=== PATIENT | female | born 1950 | race Caucasian/White ===

== ENCOUNTER 2020-02-02 10:52 | Observation (INO) | payer OTHER ==
[~2020-02-02] VITALS: Ht 152.4 cm; Wt 39.0 kg
[~2020-02-02 10:52] MED LIST: ALBUTEROL SULFATE INH; ALENDRONATE SOD35 MG PO; ASPIRIN325 MG PO; ATIVAN1 MG PO; CLONAZEPAM1 MG PO; DICYCLOMINE HCL20 MG PO; HYDROXYCHLOROQ200 MG PO; NEXIUM40 MG PO; POTASSIUM CHLO20 ME1 PO; PREDNISONE5 MG PO; PREMPRO 0.45-11 EACH PO; PROAIR HFA INH8.5 GM INH; QUESTRAN PACKET4 GM PO; SINGULAIR10 MG PO; SPIRIVA18 MCG INH; WELLBUTRIN SR150 MG PO
--- OUTSIDE RECORDS SUMMARY | 2020-02-02 10:57 | XMS REPORT | Continuity of Care Document ---
Author Author Sarah Goddard Information URSULA Chris [employer] Address Unknown Phone Unavailable Care Team Providers Care Architecture Manager Name Role Phone [employer] Unavailable Un available Problems Problem Status Onset Date Classification Date Reported Comments Source long term (current) use of systemic steroids Active Problem 12/18/2019 Chau [place] [facility] ([facility] drug therapy Active Problem 06/2020 Chau York Osteoporosis Active Problem 12/18/2019 Chau York Declined smoking cessation Act lianne Problem 06/2020 Chau York Primary osteoarthritis involving multiple joints Active Problem 12/18/2019 Chau York Rheumatoid arthritis with unknown rheuma toid factor status Active Prob levar 10/11/2017 Chau York Rheumatoid arthritis without rheumatoid factor, multiple sites Active Prob levar 12/18/2019 Chau York Pain in left knee Active Problem 12/18/2019 Chau York Other chronic pain Active Problem 12/18/2019 Chau York Vitamin D deficiency, unspecified Active Problem 06/2020 Chau Beltraner Medications Medication Details Route Status Patient Instructions Ordering Provider Order Date Source PredniSONE 1 tablet Orally Active 5 MG Orally twice a day [place] 07/13/2019 Chau York Sulfasalazine 2 tablets Orally Active 500 MG Orally bid York 06/03/2019 Chau Beltraner PredniSONE 1 tablet Orally Active 5 MG Orally twice a day [facility] 04/07/2019 Chau York Sulfasalazine 2 tablets Orally Active 500 MG Orally bid [place] 02/26/2019 Chau York Alendronate Sodium 1 tablet Orally Active 70 MG Orally Once a week [place] 01/07/2019 Chau York Alendronate Sodium 1 tablet Orally Active 70 MG Orally Once a week [place] 09/30/2018 Chau [place] Sulfasalazine 2 tablets Orally Active 500 MG Orally bid York 08/14/2018 Chau York PredniSONE 1 tablet Orally Active 5 MG Orally twice a day [place] 03/15/2018 Chau York Leflunomide 2 tablets Orally Active 10 MG Orally Once a day [place] 03/15/2018 Chau York Sulfasalazine 2 tablets Orally Active 500 MG Orally bid [place] 01/21/2018 Chau York Glucosamine 1 capsule with a m eal Orally Active 500 MG Orally Once a day [place] Chau York PredniSONE 1 tablet Orally Active 5 MG Orally twice a day [place] John Beltraner Alendronate Sodium 1 tablet Orally Active 70 MG Orally Once a week [place] Chau York Nexium 1 capsule Orally Active 20 MG Orally Once a day [place] Bel[facility]an[facility] Leflunomide 2 tablets Orally Active 10 MG Orally Once a day [place] Chau York Caltrate Gummy Bites as direct ed Orally Active 250-400 MG-UNIT Orally Once a day [place] Chau York Alendronate Sodium 1 tablet Orally Active 70 MG Orally Once a week [place] Chau York Entocort EC one Orally Active 3 MG Orally tid [place] John Beltraner Allergies, Adverse Reactions, Alerts Substance Category Reaction Severity Reaction type Status Date Reported Comments Source N.K.D.A. Adverse Reaction Info Not Available Adverse Reaction Active 12/31/2017 Chau York leflunomide Adverse Reaction hair loss Adverse Reaction Active 12/19/2018 Chau York Immunizations No Data Provided for This Section Results No Data Provided for This Section Pathology Reports No Data Provided for This Section Diagnostic Reports No Data Provided for This Section Consultation Notes No Data Provided for This Section Discharge Summaries No Data Provided for This Section History and Physicals No Data Provided for This Section Vital Signs Vital Sign Value Date Comments Source Weight 86.1 12/19/2018 Chau York Height 60 0 12/19/2018 Chau Beltraner Temperature Oral (F) 98.8 F 12/19/2018 Chau York Heart Rate 76 12/19/2018 Chau [place] Diastolic (mm Hg) 80 12/19/2018 Chau York Systolic (mm Hg) 166 12/19/2018 Chau York Weight 84.7 05/01/2018 Chau Beltraner Height 60 0 05/01/2018 Chau Beltraner Temperature Oral (F) 98.6 F 05/01/2018 Chau Beltraner Heart Rate 76 05/01/2018 Chau [place] Diastolic (mm Hg) 68 05/01/2018 Chau [place] Systolic (mm Hg) 124 05/01/2018 Chau York Weight 86.8 01/21/2018 Chau York Height 60 0 01/21/2018 Chau [place] Temperature Oral (F) 98.7 F 01/21/2018 Chau York Heart Rate 78 01/21/2018 Chau [place] Diastolic (mm Hg) 80 01/21/2018 Chau [place] Systolic (mm Hg) 130 01/21/2018 Chau [place] Weight 87.5 12/31/2017 Chau York Height 59 0 12/31/2017 Chau [place] Temperature Oral (F) 98.8 F 12/31/2017 Chau [place] Heart Rate 80 12/31/2017 Chau [place] Diastolic (mm Hg) 82 12/31/2017 Chau [place] Systolic (mm Hg) 152 12/31/2017 Chau [place] Weight 91.7 09/16/2017 Chau York Height 60 0 09/16/2017 Chau [place] Temperature Oral (F) 98.9 F 09/16/2017 Chau York Heart Rate 96 09/16/2017 Chau [place] Diastolic (mm Hg) 80 09/16/2017 Chau [place] Systolic (mm Hg) 112 09/16/2017 [facility] York Encounters No Data Provided for This Section Procedures No Data Provided for This Section Assessment and Plan No Data Provided for This Section Plan of Care No Data Provided for This Section Social History No Data Provided for This Section Family History No Data Provided for This Section Advance Directives No Data Provided for This Section Functional Status No Data Provided for This Section
--- OUTSIDE RECORDS SUMMARY | 2020-02-02 10:57 | XMS REPORT ---
Author Author URSULA York Organization [employer] Address Unknown Phone Unavailable Care Team Providers Care Materials Engineering Technician Name Role Phone Mike York CP Unavailable Allergies No Known Allergies Problems Problem Type Condition Code Onset Dates Condition Statu s Problem ferry terminal agent (current) use of systemic steroids Z79.52 Active Problem Other senior living (current) drug therapy Z79.899 Active Problem Primary osteoarthritis involving multiple joints M15.0 Active Problem Osteoporosis M81.0 Active Problem Vitamin D deficiency, unspecified E55.9 Active Problem Other chronic pain G89.29 Active Problem Rheumatoid arthritis without rheumatoid factor, multip le sites M06.09 Active Problem Declined smoking cessation Z72.0 A ctive Problem Pain in left knee M25.562 Active Medications Medication Code System Code Instructions Start Date End Date Status Dosage Sulfasalazine [facility] 45239522055 500 MG Orally bid Jun 03, 2019 Active 2 tablets Results No Known Results Summary Purpose [employer] Submission
--- OUTSIDE RECORDS SUMMARY | 2020-02-02 10:58 | XMS REPORT ---
Author Author URSULA York [facility] [employer] Address Unknown Phone Unavailable Care Team Providers Care Accounting Systems Manager Name Role Phone Mike York CP Unavailable Allergies No Known Allergies Problems Problem Type Condition Code Onset Dates Condition Statu s Problem terminal clerk (current) use of systemic steroids Z79.52 Active Problem Other detention (current) drug therapy Z79.899 Active Problem Primary [...] Start Date End Date Status Dosage Sulfasalazine [facility] 66038189194 500 MG Orally bid Aug 14, 2018 Active 2 tablets Results No Known Results Summary Purpose [employer] Submission
--- OUTSIDE RECORDS SUMMARY | 2020-02-02 10:58 | XMS REPORT ---
Author Author URSULA York Organization [employer] Address Unknown Phone Unavailable Care Team Providers Care Manager Sign Name Role Phone Mike York CP Unavailable Allergies No Known Allergies Problems Problem Type Condition Code Onset Dates Condition Statu s Problem intermodal customer service (current) use of systemic steroids Z79.52 Active Problem Other jail (current) drug therapy Z79.899 Active Problem Primary osteoarthritis involving multiple joints M15.0 Active Problem Osteoporosis M81.0 Active Problem Vitamin D deficiency, unspecified E55.9 Active Problem Other chronic pain G89.29 Active Problem Rheumatoid arthritis without rheumatoid factor, multip le sites M06.09 Active Problem Declined smoking cessation Z72.0 A ctive Problem Pain in left knee M25.562 Active Medications No Known Medications Results No Known Results Summary Purpose [employer] Submission
--- OUTSIDE RECORDS SUMMARY | 2020-02-02 10:58 | XMS REPORT ---
Author Author URSULA York Organization [employer] Address Unknown Phone Unavailable Care Team Providers Care Steam Tunnel Feeder Name Role Phone Mike York CP Unavailable Allergies No Known Allergies Problems Problem Type Condition Code Onset Dates Condition Statu s Problem rn long term care (current) use of systemic steroids Z79.52 Active Problem Other [facility] (current) drug therapy Z79.899 Active Problem Primary [...] Start Date End Date Status Dosage Sulfasalazine [facility] 68229669539 500 MG Orally bid February 26, 2019 Active 2 tablets Results No Known Results Summary Purpose [employer] Submission
--- OUTSIDE RECORDS SUMMARY | 2020-02-02 10:58 | XMS REPORT ---
Author Author URSULA York [facility] e[employer] Address Unknown Phone Unavailable Care Team Providers Care Pantry Goods Worker Name Role Phone Mike York CP Unavailable Allergies, Adverse Reactions, Alerts Substance Reaction Event Type leflunomide hair loss Non Drug Allergy Problems Problem Type Condition Code Onset Dates Condition Statu s Problem senior care (current) use of systemic steroids Z79.52 Active Problem Other termite technician (current) drug therapy Z79.899 Active Problem Primary osteoarthritis involving multiple joints M15.0 Active Problem Osteoporosis M81.0 Active Problem Vitamin D deficiency, unspecified E55.9 Active Problem Other chronic pain G89.29 Active Problem Rheumatoid arthritis without rheumatoid factor, multip le sites M06.09 Active Problem Declined smoking cessation Z72.0 A ctive Problem Pain in left knee M25.562 Active Assessment Declined smoking cessation Z72.0 A ctive Assessment Primary osteoarthritis involving multiple joints M15.0 Active Assessment Other termite technician (current) drug therapy Z79.899 Active Assessment Osteoporosis M81.0 Active Assessment Rheumatoid arthritis without rheumatoid factor, multiple sites M06.09 Active Medications Medication Code System Code Instructions Start Date End Date Status Dosage Glucosamine ND 86497285040 500 MG Orally Once a day Active 1 capsule with a meal PredniSONE ND 74181964559 5 MG Orally twice a day A ctive 1 tablet Nexium ND 04616912838 20 MG Orally Once a day Acti ve 1 capsule Sulfasalazine ND 83014446925 500 MG Orally bid Aug 14, 2018 Active 2 tablets Alendronate Sodium ND 17903650941 70 MG Orally Once a week Sep 30, 2018 Active 1 [place] [address]-76 3 MG Orally tid Active one Caltrate Gummy Bites ND 97209079109 250-400 MG-UNIT Orally Once a day Active as directed Vital Signs Date/Time: December 19, 2018 BMI 16.81 Index Weight 86.1 lbs Height 60 in Temperature 98.8 F Cardiac Monitoring Heart Rate 76 /min Blood Pressure Diastolic 80 mm Hg Blood Pressure Systolic 166 mm Hg Results No Known Results Summary Purpose [employer]Works Submission
--- OUTSIDE RECORDS SUMMARY | 2020-02-02 10:58 | XMS REPORT ---
Author URSULA Cherry [facility] e[employer] Address Unknown Phone Unavailable Care Team Providers Care Concrete Paver Name Role Phone Mike York CP Unavailable Allergies, Adverse Reactions, Alerts Substance Reaction Event Type leflunomide hair loss Non Drug Allergy Problems Problem Type Condition Code Onset Dates Condition Statu s Assessment Rheumatoid arthritis without rheumatoid factor, multiple sites M06.09 Active Problem continuous churn buttermaker (current) use of systemic steroids Z79.52 Active Problem Other manager terminal (current) drug therapy Z79.899 Active Problem Primary osteoarthritis involving multiple joints M15.0 Active Problem Osteoporosis M81.0 Active Problem Vitamin D deficiency, unspecified E55.9 Active Problem Other chronic pain G89.29 Active Problem Rheumatoid arthritis without rheumatoid factor, multip le sites M06.09 Active Problem Declined smoking cessation Z72.0 A ctive Problem Pain in left knee M25.562 Active Assessment continuous churn buttermaker (current) use of systemic steroids Z79.52 Active Assessment Osteoporosis M81.0 Active Assessment Primary osteoarthritis involving multiple joints M15.0 Active Medications Medication Code System Code Instructions Start Date End Date Status Dosage PredniSONE ND 66563832693 5 MG Orally twice a day A ctive 1 tablet Glucosamine ND 22843694989 500 MG Orally Once a day Active 1 capsule with a meal Nexium ND 08005197280 20 MG Orally Once a day Acti ve 1 capsule Caltrate Gummy Bites ND 76658599615 250-400 MG-UNIT Orally Once a day Active as directed Sulfasalazine ND 40552251435 500 MG Orally bid January 21, 2018 Jul 20, 2018 Active 2 tablets Alendronate Sodium ND 69148840638 70 MG Orally Once a week Active 1 tablet Vital Signs Date/Time: January 21, 2018 BMI 16.95 Index Weight 86.8 lbs Height 60 in Temperature 98.7 F Cardiac Monitoring Heart Rate 78 /min Blood Pressure Diastolic 80 mm Hg Blood Pressure Systolic 130 mm Hg Results No Known Results Summary Purpose eClinicalWorks Submission
--- OUTSIDE RECORDS SUMMARY | 2020-02-02 10:58 | XMS REPORT ---
Author Author URSULA York [facility] eClinicalWorks Address Unknown Phone Unavailable Care Team Providers Care Donor Specialist Name Role Phone Mike York CP Unavailable Allergies No Known Allergies Problems Problem Type Condition Code Onset Dates Condition Statu s Problem exterminator (current) use of systemic steroids Z79.52 Active Problem Other group home (current) drug therapy Z79.899 Active Problem Primary [...] Instructions Start Date End Date Status Dosage Alendronate Sodium [facility] 81209620406 70 MG Orally Once a week Sep 30, 2018 Active 1 tablet Results No Known Results Summary Purpose eClinicalWorks Submission
--- OUTSIDE RECORDS SUMMARY | 2020-02-02 10:58 | XMS REPORT ---
Author URSULA Cherry [facility] eClinicalWorks Address Unknown Phone Unavailable Care Team Providers Care Spiritual Advisor Name Role Phone Mike York CP Unavailable Allergies, Adverse Reactions, Alerts Substance Reaction Event Type leflunomide hair loss Non Drug Allergy Problems Problem Type Condition Code Onset Dates Condition Statu s Assessment Rheumatoid arthritis without rheumatoid factor, multiple sites M06.09 Active Problem supervisor intermediates (current) use of systemic steroids Z79.52 Active Problem Other remote computer terminal operator (current) drug therapy Z79.899 Active Problem Primary osteoarthritis involving multiple joints M15.0 Active Problem Osteoporosis M81.0 Active Problem Vitamin D deficiency, unspecified E55.9 Active Problem Other chronic pain G89.29 Active Problem Rheumatoid arthritis without rheumatoid factor, multip le sites M06.09 Active Problem Declined smoking cessation Z72.0 A ctive Problem Pain in left knee M25.562 Active Assessment Other remote computer terminal operator (current) drug therapy Z79.899 Active Assessment Osteoporosis M81.0 Active Assessment Primary osteoarthritis involving multiple joints M15.0 Active Medications Medication Code System Code Instructions Start Date End Date Status Dosage Alendronate Sodium ND 62658816156 70 MG Orally Once a week Active 1 tablet PredniSONE ND 47528310758 5 MG Orally twice a day A ctive 1 tablet Caltrate Gummy Bites ND 02409610747 250-400 MG-UNIT Orally Once a day [place] [address]-00 3 MG Orally tid Active one Glucosamine ND 21135495648 500 MG Orally Once a day Active 1 capsule with a meal Sulfasalazine ND 76120062243 500 MG Orally bid January 21, 2018 Active 2 tablets Nexium ND 41030032152 20 MG Orally Once a day Acti ve 1 capsule Vital Signs Date/Time: May 01, 2018 BMI 16.54 Index Weight 84.7 lbs Height 60 in Temperature 98.6 F Cardiac Monitoring Heart Rate 76 /min Blood Pressure Diastolic 68 mm Hg Blood Pressure Systolic 124 mm Hg Results Name Result Date Reference Range Unit Abnormali ty Flag 1055 SEDIMENTATION RATE ----SEDIMENTATION RATE 5 [id number] 0-20 MM/HOUR 1000 CBC W/AUTO DIFF ----PLATELET COUNT 277 [id number] 130-400 K/UL ----MCV 104.1 16359506 80.0-100.0 fL H ----HEMATOCRIT 35.4 93804717 34.0-45.0 % ----BASOPHILS 1.5 06135095 0.0-2.0 % ----MCHC 35.0 14259108 32.0-35.5 G/DL ----EOSINOPHILS 1.6 59702320 0.0-7.0 % ----MCH 36.5 46853037 27.0-34.0 PG H ----MONOCYTES 15.8 93162497 4.0-13.0 % H ----WBC 6.2 51950382 4.0-11.0 K/UL ----HEMOGLOBIN 12.4 77062072 11.5-15.5 G/DL ----RBC 3.40 97307560 3.80-5.10 M/UL L ----LYMPHOCYTES 27.5 41402615 19.0-48.0 % ----RDW 11.1 36575972 11.0-15.0 % ----NEUTROPHILS 53.6 96067980 40.0-74.0 % 9179 COMPREHENSIVE METABOLIC PANEL ----CALC A/G RATIO 1.5 84677267 1.0-2.6 RATIO ----CALC GLOBULIN 2.5 57952264 1.9-3.7 G/DL ----ALKALINE PHOSPHATASE 113 39410031 40-142 U/L ----BILIRUBIN, TOTAL 0.3 17587075 <=1.2 MG/DL ----CHLORIDE 96 22414979 95-107 MEQ/L ----ALT 9 93282741 5-40 U/L ----POTASSIUM 4.2 35058709 3.5-5.4 MEQ/L ----AST 22 20868042 9-40 U/L ----SODIUM 138 69705567 133-146 MEQ/L ----CALC BUN/CREAT 12 88860210 6-28 RATIO ---- eGFR NON- AMER. 94 20180501 >60 ML/MIN/1 .73 ----CALCIUM 9.3 59814176 8.5-10.5 MG/DL ----CARBON DIOXIDE 30 20180501 19-31 MEQ/L ----ALBUMIN 3.7 20180501 3.5-5.2 G/DL ----PROTEIN, TOTAL 6.2 20180501 6.1-8.3 G/DL ----GLUCOSE 88 20180501 70-99 MG/DL ----BUN 7 82989659 8-23 MG/DL L ----CREATININE 0.59 35933076 0.60-1.30 MG/DL L ---- eGFR AMER. 109 20180501 >60 ML/MIN/1.73 5083 HIGH SENSITIVITY CRP ----HIGH SENSITIVITY CRP 1.5 20180501 SEE BELOW MG/L Summary Purpose eClinicalWorks Submission
--- OUTSIDE RECORDS SUMMARY | 2020-02-02 10:58 | XMS REPORT ---
Author Author URSULA Gilliam Organization eClinicalWorks Address Unknown Phone Unavailable Care Team Providers Care National Van Owner Operator Name Role Phone Pam Gilliam CP Unavailable Allergies No Known Allergies Problems Problem Type Condition Code Onset Dates Condition Statu s Problem assisted (current) use of systemic steroids Z79.52 Active [...]
--- OUTSIDE RECORDS SUMMARY | 2020-02-02 10:58 | XMS REPORT ---
Author Author URSULA York Organization [employer] Address Unknown Phone Unavailable Care Team Providers Care Assistant Director Of Public Works Name Role Phone Mike York CP Unavailable Allergies No Known Allergies Problems Problem Type Condition Code Onset Dates Condition Statu s Problem supervisor sample (current) use of systemic steroids Z79.52 Active Problem Other prison (current) drug therapy Z79.899 Active Problem Primary [...] Date End Date Status Dosage Alendronate Sodium [facility]NOTE 2] 51832796788 70 MG Orally Once a week January 07, 2019 Active 1 tablet Results No Known Results Summary Purpose eClinicalWorks Submission
--- OUTSIDE RECORDS SUMMARY | 2020-02-02 10:58 | XMS REPORT ---
Author Author URSULA York Organization [employer]Works Address Unknown Phone Unavailable Care Team Providers Care Manufacturing Engineering Technologist Name Role Phone Mike York CP Unavailable Allergies No Known Allergies Problems Problem Type Condition Code Onset Dates Condition Statu s Problem intermediate designer (current) use of systemic steroids Z79.52 Active Problem Other senior care (current) drug therapy Z79.899 Active Problem Primary [...]
--- OUTSIDE RECORDS SUMMARY | 2020-02-02 10:58 | XMS REPORT ---
Author Author URSULA York Organization [employer]Works Address Unknown Phone Unavailable Care Team Providers Care House Superintendent Name Role Phone Mike York CP Unavailable Allergies No Known Allergies Problems Problem Type Condition Code Onset Dates Condition Statu s Problem intermediate project manager (current) use of systemic steroids Z79.52 Active [...]
--- OUTSIDE RECORDS SUMMARY | 2020-02-02 10:58 | XMS REPORT ---
Author URSULA Cherry [facility] eClinicalWorks Address Unknown Phone Unavailable Care Team Providers Care Lead Care Manager Name Role Phone Mike York CP Unavailable Allergies, Adverse Reactions, Alerts Substance Reaction Event Type N.K.D.A. Info Not Available Non Drug Allergy Problems Problem Type Condition Code Onset Dates Condition Statu s Assessment Rheumatoid arthritis without rheumatoid factor, multiple sites M06.09 Active Problem lobsterman (current) use of systemic steroids Z79.52 Active [...] Pain in left knee M25.562 Active Assessment Vitamin D deficiency, unspecified E55.9 Active Assessment Other termite exterminator (current) drug therapy Z79.899 Active Assessment Primary osteoarthritis involving multiple joints M15.0 Active Assessment Osteoporosis M81.0 Active Medications Medication Code System Code Instructions Start Date End Date Status Dosage Glucosamine ND 88262694180 500 MG Orally Once a day Active 1 capsule with a meal PredniSONE ND 39062218895 5 MG Orally twice a day A ctive 1 tablet Alendronate Sodium ND 56520126499 70 MG Orally Once a week Active 1 tablet Nexium ND 79306872294 20 MG Orally Once a day Acti ve 1 capsule Leflunomide ND 40978519455 10 MG Orally Once a day Active 2 tablets Caltrate Gummy Bites ND 72708217075 250-400 MG-UNIT Orally Once a day Active as directed Vital Signs Date/Time: December 31, 2017 BMI 17.67 Index Weight 87.5 lbs Height 59 in Temperature 98.8 F Cardiac Monitoring Heart Rate 80 /min Blood Pressure Diastolic 82 mm Hg Blood Pressure Systolic 152 mm Hg Results No Known Results Summary Purpose eClinicalWorks Submission
--- OUTSIDE RECORDS SUMMARY | 2020-02-02 10:58 | XMS REPORT ---
Author Author URSULA York Organization [employer]ClinicalWorks Address Unknown Phone Unavailable Care Team Providers Care Systems Lead Name Role Phone Mike York CP Unavailable Allergies No Known Allergies Problems Problem Type Condition Code Onset Dates Condition Statu s Problem conversion man (current) use of systemic steroids Z79.52 Active Problem Other snf (current) drug therapy Z79.899 Active Problem Primary [...]
--- OUTSIDE RECORDS SUMMARY | 2020-02-02 10:58 | XMS REPORT ---
Author Author URSULA York Organization eClinicalWorks Address Unknown Phone Unavailable Care Team Providers Care Channeling Machine Operator Name Role Phone Mike York CP Unavailable Allergies No Known Allergies Problems Problem Type Condition Code Onset Dates Condition Statu s Problem ad terminal makeup operator (current) use of systemic steroids Z79.52 Active Problem Other nursing home (current) drug therapy Z79.899 Active Problem [...] Start Date End Date Status Dosage PredniSONE [facility] 39235646582 5 MG Orally twice a day Jul 13, 2019 Active 1 tablet Results No Known Results Summary Purpose eClinicalWorks Submission
--- OUTSIDE RECORDS SUMMARY | 2020-02-02 10:58 | XMS REPORT ---
Author Author URSULA Gilliam Organization eClinicalWorks Address Unknown Phone Unavailable Care Team Providers Care Surgery Tech Name Role Phone Pam Gilliam CP Unavailable Allergies No Known Allergies Problems Problem Type Condition Code Onset Dates Condition Statu s Problem custodial (current) use of systemic steroids Z79.52 Active Problem Other halfway (current) drug therapy Z79.899 Active Problem Primary [...] Start Date End Date Status Dosage PredniSONE [facility] 40738935617 5 MG Orally twice a day April 07, 2019 Active 1 tablet Results No Known Results Summary Purpose eClinicalWorks Submission
--- OUTSIDE RECORDS SUMMARY | 2020-02-02 10:58 | XMS REPORT ---
Author Author [facility] Organization [facility] Address 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 senior care (current) use of systemic steroids Active Problem 12/18/2019 Chau York Problem Active 2019-12-18 02:59:05 Chau York Other penitentiary (current) drug therapy Other salvage determiner (current) drug therapy Active Problem 12/18/2019 Chau York Problem Ac tive 2019-12-18 02:59:05 Chau piña Osteoporosis Oste oporosis Active Problem 12/18/2019 Chau York Problem Active 2019-12-18 02:59:05 Chau York Declined smoking cessation Dec lined smoking cessation Active Problem 12/18/2019 Chau York Problem Active 2019-12-18 02:59:05 Chau York 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 Active Problem 12/18/2019 Chau York Problem Active 2019-12-18 02:59:05 Chau York Rheumatoid arthritis with unknown rheumatoid factor st atus Rheumatoid arthritis with unknown rheumatoid factor status Active Problem 10/11/2017 Chau York Problem Active 2017-10-11 03:50:34 Chau York Rheumatoid arthritis without rheumatoid factor, multip le sites Rheumatoid arthritis without rheumatoid factor, multiple sites Active Problem 12/18/2019 Chau York Problem Active 2019-12-18 02:59:05 Chau York Pain in left knee Pain in left knee Active Problem 12/18/2019 Chau York Problem Active 2019-12-18 02:59:05 Chau York Other chronic pain Othe r chronic pain Active Problem 12/18/2019 Chau York Problem Active 2019-12-18 02:59:05 Chau York Vitamin D deficiency, unspecified Vitamin D deficiency, unspecified Active Problem 12/18/2019 Chau York Problem Active 2019-12-18 02:59:05 Chau York Allergies, Adverse Reactions, Alerts Allergy Name Allergy Type Status Severity Reaction(s) Onset Date Inacti ve Date Treating Clinician Comments Source leflunomide leflunomide Active hair loss 2018-12-19 00:00:00 [facility] ALL KIND OF ADHESIVE TAPES DA Active SV 2018-06-11 00:00:0 0 [facility] N.K.DGilbertA. N.Merrill.Karin Active Info Not Available 2017-12-31 00:00:00 [facility] No Known Contrast Allergies DA Active U 2009-02-16 00:00: 00 [facility] No Known Drug Allergies DA Active U 2009-02-16 00:00:00 [facility] No Known Food Allergies DA Active U 2009-02-16 00:00:00 [facility] No Known Other Allergies DA Active U 2009-02-16 00:00:00 [facility] No Known Drug Intolerances DA Active U 2008-04-20 00:00:0 0 [facility] Medications Ordered Medication Name Filled Medication Name Start Date Stop Da te Current Medication? Ordering Clinician Indication Dosage Frequency Signature (SIG) Comments Components Source PredniSONE 2019-07-13 00:00:00 Yes Mike York 1 tablet Chau York Sulfasalazine 2019-06-03 00:00:00 Yes Mike York 2 tablets Chau Beltraner Glucosamine 2019-05-22 02:46:51 Yes Mike Beltraner 1 capsule with a meal Chau York PredniSONE 2019-05-22 02:46:51 Yes Mike Beltraner 1 tablet Chau York Nexium 2019-05-22 02:46:51 Yes Mike York 1 ca psule Chau York Caltrate Gummy Bites 2019-05-22 02:46:51 Yes Mike Wall er as directed Chau York Entocort EC 2019-05-22 02:46:51 Yes Imke York one Chau York PredniSONE 2019-04-07 00:00:00 Yes Pam Gilliam 1 tablet Chau York Sulfasalazine 2019-02-26 00:00:00 Yes Mike York 2 tablets Chau York Alendronate Sodium 2019-01-07 00:00:00 Yes Mike York 1 tablet Chau York Alendronate Sodium 2018-09-30 00:00:00 Yes Mike York 1 tablet Chau York Sulfasalazine 2018-08-14 00:00:00 Yes Mike York 2 tablets Chau York Alendronate Sodium 2018-05-08 02:47:04 Yes Mike York 1 tablet Chau York PredniSONE 2018-03-15 00:00:00 Yes Mike York 1 tablet Chau York Leflunomide 2018-03-15 00:00:00 Yes Mike York 2 tablets Chau York Sulfasalazine 2018-01-21 00:00:00 Yes Mike York 2 tablets Chau York Leflunomide 2018-01-03 02:46:32 Yes Mike York 2 tablets Chau York Alendronate Sodium 2017-10-11 03:50:34 Yes Mike York 1 tablet Chau York Vital Signs Vital Name Observation Time Observation Value Comments Source Weight 2018-12-19 16:45:00 Chau York Height 2018-12-19 16:45:00 Chau York Temperature Oral (F) 2018-12-19 16:45:00 98.8 F Chau York Heart Rate 2018-12-19 16:45:00 Chau York Diastolic (mm Hg) 2018-12-19 16:45:00 Phi llip York Systolic (mm Hg) 2018-12-19 16:45:00 John lip York Weight 2018-05-01 14:45:00 Chau York Height 2018-05-01 14:45:00 Chau York Temperature Oral (F) 2018-05-01 14:45:00 98.6 F Chau York Heart Rate 2018-05-01 14:45:00 Chau York Diastolic (mm Hg) 2018-05-01 14:45:00 Phi llip York Systolic (mm Hg) 2018-05-01 14:45:00 John lip York Weight 2018-01-21 15:45:00 Chau York Height 2018-01-21 15:45:00 Chau York Temperature Oral (F) 2018-01-21 15:45:00 98.7 F Chau York Heart Rate 2018-01-21 15:45:00 Chau York Diastolic (mm Hg) 2018-01-21 15:45:00 Phi llip York Systolic (mm Hg) 2018-01-21 15:45:00 John lip York Weight 2017-12-31 19:45:00 Chau York Height 2017-12-31 19:45:00 Chau York Temperature Oral (F) 2017-12-31 19:45:00 98.8 F Chau York Heart Rate 2017-12-31 19:45:00 Chau York Diastolic (mm Hg) 2017-12-31 19:45:00 Phi llip York Systolic (mm Hg) 2017-12-31 19:45:00 John lip York Weight 2017-09-16 15:45:00 Chau York Height 2017-09-16 15:45:00 Chau York Temperature Oral (F) 2017-09-16 15:45:00 98.9 F Chau York Heart Rate 2017-09-16 15:45:00 Chau York Diastolic (mm Hg) 2017-09-16 15:45:00 Phi llip York Systolic (mm Hg) 2017-09-16 15:45:00 John lip York Procedures This patient has no known procedures. Encounters Start Date/Time End Date/Time [facility]counter ID Source 2020-02-02 10:58:01 Outpatient MHIEALT MHIEALT [id number] [facility] 2019-10-29 07:01:00 Inpatient [facility] [id number] [facility] 2019-07-13 15:42:00 2019-07-13 15:42:00 Outpatient MD ELISA Dunn MD [place] [id number] Chau York MD 2019-06-29 11:42:00 2019-06-29 11:42:00 Outpatient MD ELISA [place] MD [place] [id number] Chau York MD 2019-06-16 15:18:00 2019-06-16 15:18:00 Outpatient MD ELISA Bui MD [place] [id number] Chau York MD 2019-06-12 09:10:00 2019-06-12 09:10:00 Outpatient MD ELISA Bui MD [place] [id number] Chau York MD 2019-06-03 13:24:00 2019-06-03 13:24:00 Outpatient MD ELISA Bui MD [place] [id number] Chau York MD 2019-04-23 10:24:00 2019-04-23 10:24:00 Outpatient Mike York MD PA [id number] Chau York MD 2019-04-07 12:27:00 2019-04-07 12:27:00 Outpatient Mike York MD PA [id number] Chau York MD 2019-04-07 09:21:00 2019-04-07 09:21:00 Outpatient Mike York MD PA [id number] Chau York MD 2019-02-26 09:05:00 2019-02-26 09:05:00 Outpatient Mike York MD PA [id number] Chau York MD 2019-02-25 15:35:00 2019-02-25 15:35:00 Outpatient Mike York MD PA [id number] Chau York MD 2019-01-07 10:55:00 2019-01-07 10:55:00 Outpatient Mike York MD PA [id number] Chau York MD 2018-12-19 11:45:00 2018-12-19 11:45:00 Outpatient MD ELISA [place], [place] [id number] Chau York MD 2018-12-01 09:20:00 2018-12-01 09:20:00 Outpatient Mike PÉREZ [id number] Chau York MD 2018-11-17 13:30:00 2018-11-17 13:30:00 Outpatient Mike York MD PA [id number] Chau York MD 2018-09-30 13:33:00 2018-09-30 13:33:00 Outpatient Mike York MD PA [id number] Chau York MD 2018-08-14 10:40:00 2018-08-14 10:40:00 Outpatient Mike PÉREZ [id number] Chau York MD 2018-05-01 10:09:00 2018-05-01 10:09:00 Outpatient Mike York MD PA [id number] Chau York MD 2018-05-01 09:45:00 2018-05-01 09:45:00 Outpatient Mike York MD PA [id number] Chau York MD 2018-01-21 10:45:00 2018-01-21 10:45:00 Outpatient Mike York MD PA [id number] Chau Yokr MD 2018-01-14 09:24:00 2018-01-14 09:24:00 Outpatient Mike York MD PA [id number] Chau York MD 2018-01-02 20:21:00 2018-01-02 20:21:00 Outpatient Mike PÉREZ [id number] Chau York MD 2017-12-31 14:45:00 2017-12-31 14:45:00 Outpatient Mike PÉREZ [id number] Chau York MD 2017-09-16 10:44:00 2017-09-16 10:44:00 Outpatient Mike York MD PA [id number] Chau York MD 2017-09-16 09:45:00 2017-09-16 09:45:00 Outpatient Mike York MD PA [id number] Chau York MD Results Test Description Test Time Test Comments Results Result Comments Source SCR MAMM BILATERAL COLIN CAD DIGITAL 2018-11-13 14:02:20 - SCR MAMM BILATERAL COLIN CAD DIGITALBILATERAL DIGITAL SCREENING MAMMOGRAM 3D/2D WITH CAD: 11/13/2018CLINICAL: Asymptomatic. Digital breast tomosynthesis was performed in addition to routine CC and MLO views. Current mammographic images were evaluated by either a Usound M-Vu or a Roamer CAD (computer aided detection system). Comparison is made to exams dated 10/09/2017 mammogram, 07/15/2014 mammogram, and 04/29/2013 mammogram - [facility]-. There are scattered fibroglandular tissues in both breasts. There are benign vascular calcifications and a calcification in both breasts. No suspicious mass, architectural distortion, malignant type calcification, or lymph node abnormality detected. Breast architecture is stable compared to prior exams.IMPRESSION: BENIGNThere is no mammographic evidence of malignancy. Resume annual screening mammography in one year. Karen mesa/penjessica:11/13/2018 14:02:20 Engine Lathe Operator: Aziza CARDONA, [facility]-FWletter sent: BIRADS 1-2 Normal Mammogram BI-RADS: 2 Benign HARDWARE 2018-06-19 15:43:00 RUN DATE: 06/19/18 [place] - Lab PAGE 1 RUN TIME: 1543 Specimen Inquiry RUN USER: INTERFACE PATIENT: URSULA WATTS LC LOC: VON U #: [id number] AGE/SX: 67/F ROOM: 2054 RE06/18/18REG DR: Theodore Upton MD : 49 BED: A DIS: 06/19/18 STATUS: DIS IN TLOC: SPEC #: [id number] RECD: 06/18/18 STATUS: HIPOLITO REQ #: [id number] LISBETH: 06/18/18 DR: Theodore Upton MD ENTERED: 06/18/18 SP TYPE: HARDWARE OTHR DR: Faisal Mendenhall MD ORDERED: GROSS COPIES TO: Theodore Upton MD [address] [place] [address] Faisal Mendenhall MD [address] [facility] [address] [place] [address] PROCEDURES: GROSS (06/19/18-1156) TISSUES: 1. HARDWARE 2. 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 AND L2-3 SPINAL STENOSIS FINAL DIAGNOSIS Hardware, removal: SURGICAL HARDWARE (GROSS IDENTIFICATION) Ligamentum flavum, laminectomy: TRABECULAR BONE WITH UNREMARKABLE MARROW ELEMENTS CARTILAGE WITH DEGENERATIVE CHANGE FRAGMENTS OF DENSE CONNECTIVE TISSUE NEGATIVE FOR MALIGNANCY RRB/sm D 17285, 17426, 06134 CONTINUED ON NEXT PAGE RUN DATE: 06/19/18 [facility] PAGE 2 RUN TIME: 1543 Specimen Inquiry RUN USER: INTERFACE SPEC #: [id number] PATIENT: URSULA WATTS PAGE #[id number] (Continued) MACROSCOPIC The first specimen is received in a container labeled with the patient's name and identified as "screws for ID only". The specimen consists of four silver colored metallic screws with attached heads. The screws with attached heads measure 6 cm in length. Also received are two silver colored curved cylindroid metallic structures measuring 4.2 cm in length by 0.5 cm in diameter and 5 silver colored nuts measuring 0.8 cm in diameter by 0.4 cm in height. The second specimen is received in formalin, labeled with the patient's name, and identified as "ligamentum flavum". It consists of multiple duarte-yellow fibrous fragments of tissue measuring 3.0 X 2.2 X 0.8 cm in aggregate. Decalcification solution is placed on the tissue. After the specimen is allowed to decalcify samples of the specimen are submitted for microscopic evaluation in cassette (2). GROSS PERFORMED AT [facility] [address] [place] [address] [id number] (p)[phone] MICROSCOPIC MICROSCOPIC PERFORMED AT [facility] All of the stains, including any controls performed, stain appropriately. [facility] [address] [place] [address] 77504 (p)[phone] PERFORMING SITE Diagnosis performed at: [facility], ELISA [address] [place] [address] Signed SIGNATURE ON FILE Skyler Vyas 06/19/18 1543 END OF REPORT
--- OUTSIDE RECORDS SUMMARY | 2020-02-02 10:58 | XMS REPORT ---
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
--- OUTSIDE RECORDS SUMMARY | 2020-02-02 10:58 | XMS REPORT ---
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
--- OUTSIDE RECORDS SUMMARY | 2020-02-02 10:58 | XMS REPORT ---
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
--- OUTSIDE RECORDS SUMMARY | 2020-02-02 10:58 | XMS REPORT ---
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
--- OUTSIDE RECORDS SUMMARY | 2020-02-02 10:58 | XMS REPORT ---
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
--- OUTSIDE RECORDS SUMMARY | 2020-02-02 10:58 | XMS REPORT ---
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
--- OUTSIDE RECORDS SUMMARY | 2020-02-02 10:58 | XMS REPORT ---
Author URSULA Cherry [facility] [employer] Address Unknown Phone Unavailable Care Team Providers Care Metal Patternmaker Apprentice Name Role Phone Mike York CP Unavailable Allergies, Adverse Reactions, Alerts Substance Reaction Event Type N.K.D.A. 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.52 Active Problem Other superintendent marine oil terminal (current) drug therapy Z79.899 Active Problem Osteoporosis M81.0 Active Problem Declined smoking cessation Z72.0 A ctive Problem Primary osteoarthritis involving multiple joints M15.0 Active Problem Rheumatoid arthritis with unknown rheumatoid factor st atus M06.9 Active Problem Rheumatoid arthritis without rheumatoid factor, multip le sites M06.09 Active Problem Pain in left knee M25.562 Active Problem Other chronic pain G89.29 Active Assessment 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 Z79.52 Active Assessment Osteoporosis M81.0 Active Assessment Primary osteoarthritis involving multiple joints M15.0 Active Medications Medication Code System Code Instructions Start Date End Date Status Dosage PredniSONE ND 68830250430 5 MG Orally twice a day March 15, 2018 Active 1 tablet Leflunomide ND 55448693967 10 MG Orally Once a day March 15, 2018 Active 2 tablets Nexium ND 55347479264 20 MG Orally Once a day Acti ve 1 capsule Alendronate Sodium ND 56697516362 70 MG Orally Once a week Active 1 tablet Caltrate Gummy Bites ND 68712012750 250-400 MG-UNIT Orally Active as directed Glucosamine NDC 42385110896 500 MG Orally Once a day Active 1 capsule with a meal Vital Signs Date/Time: Sep 16, 2017 BMI 17.91 Index Weight 91.7 lbs Height 60 in Temperature 98.9 F Cardiac Monitoring Heart Rate 96 /min Blood Pressure Diastolic 80 mm Hg Blood Pressure Systolic 112 mm Hg Results Name Result Date Reference Range Unit Abnormali ty Flag COMPREHENSIVE METABOLIC PANEL W/EGFR ----CALCIUM 9.5 20170916 8.6-10.4 mg/dL N ----CARBON DIOXIDE 25 20170916 20-31 mmol/L N ----ALT 14 20170916 6-29 U/L N ----CREATININE 0.71 20170916 0.50-0.99 mg/dL N ----AST 26 20170916 10-35 U/L N ----eGFR NON-AFR. CROATIAN 88 20170916 > OR = 60 mL/min/1. 73m2 N ----ALKALINE PHOSPHATASE 108 20170916 33-130 U/L N ----eGFR 102 02058541 > OR = 60 mL/min/1.7 3m2 N ----BILIRUBIN, TOTAL 0.6 20170916 0.2-1.2 mg/dL N ----BUN/CREATININE RATIO NOT APPLICABLE 20170916 6-22 (calc) ----ALBUMIN/GLOBULIN RATIO 1.7 20170916 1.0-2.5 (calc) N ----SODIUM 139 20170916 135-146 mmol/L N ----GLOBULIN 2.6 58343958 1.9-3.7 g/dL (calc) N ----POTASSIUM 4.1 20170916 3.5-5.3 mmol/L N ----GLUCOSE 97 20170916 65-99 mg/dL N ----CHLORIDE 101 20170916 98-110 mmol/L N ----ALBUMIN 4.3 58828900 3.6-5.1 g/dL N ----UREA NITROGEN (BUN) 11 20170916 7-25 mg/dL N ----PROTEIN, TOTAL 6.9 20170916 6.1-8.1 g/dL N SED RATE BY MODIFIED WESTERGREN ----SED RATE BY MODIFIED WESTERGREN 4 20170916 < OR = 30 mm/h N C-REACTIVE PROTEIN ----C-REACTIVE PROTEIN 0.3 20170916 <8.0 mg/L N CBC (INCLUDES DIFF/PLT) ----MCHC 34.5 20170916 32.0-36.0 g/dL N ----MCH 34.4 32285400 27.0-33.0 pg H ----PLATELET COUNT 259 85233746 140-400 Thousand/uL N ----RDW 11.6 64087706 11.0-15.0 % N ----BASOPHILS 1.3 63549420 % N ----ABSOLUTE NEUTROPHILS 6194 21156376 9146-0222 cells/uL N ----ABSOLUTE LYMPHOCYTES 1523 71766217 850-3900 cells/uL N ----MPV 10.2 25297638 7.5-12.5 fL N ----ABSOLUTE BASOPHILS 113 94760709 0-200 cells/uL N ----HEMATOCRIT 41.4 64074891 35.0-45.0 % N ----NEUTROPHILS 71.2 53626573 % N ----MCV 99.5 36052210 80.0-100.0 fL N ----RED BLOOD CELL COUNT 4.16 86654490 3.80-5.10 Million/uL N ----ABSOLUTE MONOCYTES 809 78602242 200-950 cells/uL N ----ABSOLUTE EOSINOPHILS 61 26365432 15-500 cells/uL N ----HEMOGLOBIN 14.3 29388798 11.7-15.5 g/dL N ----EOSINOPHILS 0.7 04682345 % N ----WHITE BLOOD CELL COUNT 8.7 41343596 3.8-10.8 Thousand/ uL N ----LYMPHOCYTES 17.5 34306897 % N ----MONOCYTES 9.3 16642566 % N Summary Purpose eClinicalWorks Submission
--- OUTSIDE RECORDS SUMMARY | 2020-02-02 10:58 | XMS REPORT ---
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
[2020-02-02] MEDS ORDERED: ONDANSETRON HCL INJ 2MG/ML 2ML 2 MG/ML VIAL IV STA (11:07)
[2020-02-02] MEDS ORDERED: PANTOPRAZOLE 40 MG 10ML VIAL IV STA (11:07)
[2020-02-02] MEDS ORDERED: SODIUM CHLORIDE 0.9% 1000ML 1,000 ML IV STA ×3 (11:07→14:16)
[2020-02-02] MEDS ORDERED: PIPER-TAZ 3.375 GM 50 ML IV STA (11:07)
[2020-02-02] MEDS ORDERED: MORPHINE SULFATE 2 MG/ML SYR 1ML IV STA (11:07)
[2020-02-02] MEDS ORDERED: DIATRIZOATE MEGL/DIATRIZOA SOD 30 ML BTL PO ONE (11:26)
[2020-02-02 12:02] LABS: BASOPHILS # (AUTO) 0.1 (0.0-0.1); BASOPHILS % 0.4 % (0.0-1.0); HEMATOCRIT 40.3 % (34.2-44.1); HEMOGLOBIN 13.6 g/dL (12.0-16.0); LYMPHOCYTES # (AUTO) 0.7 (1.0-3.2); LYMPHOCYTES % 6.4 % (18.0-39.1); MEAN CORPUSCULAR HEMOGLOBIN 38.9 pg (28-32); MEAN CORPUSCULAR HGB CONC 33.7 g/dL (31-35); MEAN CORPUSCULAR VOLUME 115.1 fL (81-99); MONOCYTES # (AUTO) 0.5 (0.2-0.8); MONOCYTES % 4.4 % (4.4-11.3); NEUTROPHILS # (AUTO) 10.2 (2.1-6.9); NEUTROPHILS % 88.5 % (38.7-80.0); PLATELET COUNT 236 x10e3/uL (140-360); RED CELL DISTRIBUTION WIDTH 13.4 % (11.7-14.4)
[2020-02-02 12:06] LABS: CLARITY,URINE CLOUDY (CLEAR); COLOR,URINE YELLOW (YELLOW)
[2020-02-02 12:07] LABS: BILIRUBIN,URINE MODERATE (NEGATIVE); KETONES,URINE 1+ (NEGATIVE); LEUKOCYTE ESTERASE ,URINE SMALL (NEGATIVE); NITRITE,URINE POSITIVE (NEGATIVE); PROTEIN,URINE DIPSTICK 2+ (NEGATIVE); URINE UROBILINOGEN 1 mg/dL (0.2 - 1)
--- NOTE | 2020-02-02 12:18 | Diagnostic Imaging Report ---
X-ray chest single view portable History: Abdominal pain, COPD, chronic shortness of breath Comparison: 06/21/2015 Findings: Central airways unremarkable. Heart size normal. Atherosclerotic aorta. No pleural effusion. No pneumothorax. No focal lung infiltrates. Hyperinflated lucent lungs. 2 oval opacities, one 18 mm opacity in the right upper lung zone and another 16.7 mm in the right lower lung zone, new compared with the previous exam. Another opacity measuring approximately 12 mm seen in the left upper lung zone. This could be overlapping multiple bone shadows. However given the history, further evaluation with chest CT is suggested. Status post C-spine fusion on a chronic basis. Impression: No acute cardiopulmonary disease. 2 nodular opacities in the right lung and one possibly in the left upper lung zone as described above. A chest CT may be considered given the findings of COPD. Signed by: Galindo Wilson MD on 02/02/2020 12:15 PM
[2020-02-02 12:20] LABS: BACTERIA,URINE MANY /HPF; EPITHELIAL CELLS,URINE RARE /LPF; WBC,URINE (MAN) 21-50 /HPF (0-5)
[2020-02-02 12:24] LABS: INR 1.02
[2020-02-02 12:25] LABS: PARTIAL THROMBOPLASTIN TIME 32.6 seconds (23.8-35.5)
[2020-02-02 12:30] LABS: ALANINE AMINOTRANSFERASE 20 IU/L (0-55); ALBUMIN 3.9 g/dL (3.5-5.0); ALBUMIN/GLOBULIN RATIO 1.2 (0.8-2.0); ALKALINE PHOSPHATASE 91 IU/L (40-150); ANION GAP 17.9 mmol/L (8-16); BLOOD UREA NITROGEN 11 mg/dL (7-26); BUN/CREATININE RATIO 15 (6-25); CALCIUM 9.3 mg/dL (8.4-10.2); CARBON DIOXIDE 22 mmol/L (22-29); CHLORIDE 95 mmol/L (98-107); CREATINE KINASE 95 IU/L (29-168); CREATININE, SERUM 0.72 mg/dL (0.57-1.11); EST GLOMERULAR FILTRATION RATE > 60 ML/MIN (60-); GLUCOSE 118 mg/dL (74-118); MAGNESIUM 1.8 MG/DL (1.3-2.1); POTASSIUM 3.9 mmol/L (3.5-5.1); SODIUM 131 mmol/L (136-145)
[2020-02-02] MEDS ORDERED: SODIUM CHLORIDE 0.9% 1000ML 1,000 ML ONE (12:48)
[2020-02-02 12:49] LABS: LIPASE < 4 U/L (8-78)
--- NOTE | 2020-02-02 13:41 | NUR ---
2nd lactic sent to lab
--- NOTE | 2020-02-02 13:56 | Emergency Department Note ---
History of Present Illnes History of Present Illness Chief Complaint: General Medicine Complaints History of Present Illness This is a 69 year old female ABD PAIN AND BLOATING AND DRY HEAVES FOR 2 DAYS. PT STATES NO BM X 3 TO FOUR DAYS. AAOX4. AMBULATORY. SENT FROM DR PATIÑO'S OFFICE. Historian: Patient, Family Member Arrival Mode: Car Senior Mobile Application Developer Required: No Onset (how long ago): day(s) (2) Location: DIFFUSE ABD Quality: PAIN Radiation: non-radiation Severity: severe Onset quality: gradual Duration (how long): day(s) (2) Timing of current episode: constant Progression: worsening Chronicity: new Context: recent illness Relieving factors: none Exacerbating factors: none Associated symptoms: loss of appetite, nausea/vomiting, other (ABD PAIN, CONSTIPATION) Treatments prior to arrival: none Past Medical/Family History Physician Review I have reviewed the patient's past medical and family history. Any updates have been documented here. Past Medical History Recent Fever: No Clinical Suspicion of Infectio: No New/Unexplained Change in Ment: No Past Medical History: COPD, Depression, Chronic Back Pain Other Medical History: RH.ARTHRITIS ULCERATIVE COLITIS STILL SMOKER OCC ETOH Past Surgical History: Knee Replacement, Back Surgery Other Surgery: LEFT KNEE 2 NECK SURGERY Social History Smoking Cessation: Current every day smoker Counseling Performed: No Alcohol Use: Occasional Any Illegal Drug Use: No TB Exposure/Symptoms: No Physically hurt or threatened: No Family History Family history of heart diseas: No Other Any Pre-Existing Lines (PICC,: No Last Flu: YES Last Pneumovax: YES Review of Systems Review of Systems Constitutional: malaise EENTM: no symptoms Cardiovascular: no symptoms Respiratory: dyspnea (CHRONIC) Gastrointestinal: as per HPI, abdominal pain, constipation, nausea, vomiting Genitourinary: no symptoms Musculoskeletal: no symptoms Neurological: no symptoms Psychological: no symptoms Endocrine: no symptoms Hematological/Lymphatic: no symptoms Review of other systems All other systems reviewed and negative. Physical Exam Related Data Allergies: Coded Allergies: No Known Drug Allergies (Verified Allergy, Unknown, 02/20/10) Triage Vital Signs Vital Signs Date Time Temp Pulse Resp B/P (MAP) Pulse Ox O2 Delivery O2 Flow Rate FiO2 02/02/20 11:01 98.5 86 18 121/99 92 Physical Exam CONSTITUTIONAL Constitutional: ill appearing HENT HENT: normocephalic, atraumatic, oropharynx clear/moist, nose normal HENT L/R: left ext ear normal, right ext ear normal EYES Eyes: PERRL, conjunctivae normal NECK Neck: ROM normal PULMONARY Pulmonary: effort normal, breath sounds normal, other (MODERATELY DECR BS's THROUGHOUT) CARDIOVASCULAR Cardiovascular: regular rhythm, heart sounds normal, capillary refill normal, normal rate GASTROINTESTINAL Abdominal: distension (MILD), tender (DIFFUSELY TENDER WITH REBOUND/GAURDING ), guarding, rebound, other (HYPOACTIVE BS's) GENITOURINARY Genitourinary: exam deferred SKIN Skin: warm, dry MUSCULOSKELETAL Musculoskeletal: ROM normal NEUROLOGICAL Neurological: alert, oriented x 3, no gross motor or sensory deficits PSYCHOLOGICAL Psychological: mood/affect normal, judgement normal Results Laboratory Result Diagram: 02/02/20 1145 02/02/20 1145 Laboratory Laboratory Tests Test 02/02/20 11:55 02/02/20 11:45 Urine Color Yellow (YELLOW) Urine Clarity Cloudy (CLEAR) Urine pH 6.5 (5 - 7) Urine Specific [place] 1.025 (1.010-1.025) Urine Protein 2+ (NEGATIVE) Urine Glucose (UA) Negative (NEGATIVE) Urine Ketones 1+ (NEGATIVE) Urine Blood Negative (NEGATIVE) Urine Nitrite Positive (NEGATIVE) Urine Bilirubin Moderate (NEGATIVE) Urine Urobilinogen 1 mg/dL (0.2 - 1) Urine Leukocyte Esterase Small (NEGATIVE) Urine RBC None /HPF (0-5) Urine WBC 21-50 /HPF (0-5) Urine Epithelial Cells Rare /LPF (NONE) Urine Bacteria Many /HPF (NONE) White Blood Count 11.48 x10e3/uL (4.8-10.8) Red Blood Count 3.50 x10e6/uL (3.6-5.1) Hemoglobin 13.6 g/dL (12.0-16.0) Hematocrit 40.3 % (34.2-44.1) Mean Corpuscular Volume 115.1 fL (81-99) Mean Corpuscular Hemoglobin 38.9 pg (28-32) Mean Corpuscular Hemoglobin Concent 33.7 g/dL (31-35) Red Cell Distribution Width 13.4 % (11.7-14.4) Platelet Count 236 x10e3/uL (140-360) Neutrophils (%) (Auto) 88.5 % (38.7-80.0) Lymphocytes (%) (Auto) 6.4 % (18.0-39.1) Monocytes (%) (Auto) 4.4 % (4.4-11.3) Eosinophils (%) (Auto) 0.0 % (0.0-6.0) Basophils (%) (Auto) 0.4 % (0.0-1.0) Neutrophils # (Auto) 10.2 (2.1-6.9) Lymphocytes # (Auto) 0.7 (1.0-3.2) Monocytes # (Auto) 0.5 (0.2-0.8) Eosinophils # (Auto) 0.0 (0.0-0.4) Basophils # (Auto) 0.1 (0.0-0.1) Absolute Immature Granulocyte (auto 0.04 x10e3/uL (0-0.1) Prothrombin Time 14.0 seconds (11.9-14.5) Prothromb Time International Ratio 1.02 Activated Partial Thromboplast Time 32.6 seconds (23.8-35.5) Sodium Level 131 mmol/L (136-145) Potassium Level 3.9 mmol/L (3.5-5.1) Chloride Level 95 mmol/L (98-107) Carbon Dioxide Level 22 mmol/L (22-29) Anion Gap 17.9 mmol/L (8-16) Blood Urea Nitrogen 11 mg/dL (7-26) Creatinine 0.72 mg/dL (0.57-1.11) Estimat Glomerular Filtration Rate > 60 ML/MIN (60-) BUN/Creatinine Ratio 15 (6-25) Glucose Level 118 mg/dL (74-118) Lactic Acid Level 2.4 mmol/L (0.5-2.0) Calcium Level 9.3 mg/dL (8.4-10.2) Magnesium Level 1.8 MG/DL (1.3-2.1) Total Bilirubin 1.2 mg/dL (0.2-1.2) Aspartate Amino Transf (AST/SGOT) 32 IU/L (5-34) Alanine Aminotransferase (ALT/SGPT) 20 IU/L (0-55) Alkaline Phosphatase 91 IU/L (40-150) Creatine Kinase 95 IU/L (29-168) Creatine Kinase MB 2.50 ng/mL (0-5.0) Troponin I 0.026 ng/mL (0-0.300) Total Protein 7.2 g/dL (6.5-8.1) Albumin 3.9 g/dL (3.5-5.0) Globulin 3.3 g/dL (2.3-3.5) Albumin/Globulin Ratio 1.2 (0.8-2.0) Lipase < 4 U/L (8-78) Lab results reviewed: Yes Laboratory comments ELEV WBC, LACTIC ACID, UTI Imaging Imaging results reviewed: Yes Impressions X-ray chest single view portable History: Abdominal pain, COPD, chronic shortness of breath Comparison: 06/21/2015 Findings: Central airways unremarkable. Heart size normal. Atherosclerotic aorta. No pleural effusion. No pneumothorax. No focal lung infiltrates. Hyperinflated lucent lungs. 2 oval opacities, one 18 mm opacity in the right upper lung zone and another 16.7 mm in the right lower lung zone, new compared with the previous exam. Another opacity measuring approximately 12 mm seen in the left upper lung zone. This could be overlapping multiple bone shadows. However given the history, further evaluation with chest CT is suggested. Status post C-spine fusion on a chronic basis. Impression: No acute cardiopulmonary disease. 2 nodular opacities in the right lung and one possibly in the left upper lung zone as described above. A chest CT may be considered given the findings of COPD. Signed by: Galindo Wilson MD on 02/02/2020 12:15 PM Imaging Comments STILL WAITING ON CT ABD/PELVIS Diagnostics Tests Diagnostic test(s) reviewed: Yes Procedures 12 Lead ECG Interpretation Senior Mobile Application Developer: Interpreted by ED physician Date: February 02, 2020 Time: 12:13 Prior SUPERVISOR C[employer]TING [employer] SEWING ROOM tracings: reviewed Rhythm: sinus tachycardia Rate: tachycardia (106) QRS axis: normal ST segments normal: Yes T wave depression: I, aVL Clinical Impression: abnormal ECG Critical Care Time Critical care time exclusive o: separately billable procedures Critcal care necessary due to: sepsis Critcal care time spent by me: discussion w consultants, discussion w primary provider, evaluation patient response to tx, examination of patient, order/perform tx or interventions, order/review laboratory studies, re-evalua tion of patient condition Assessment & Plan Reassessment Reassessment ABD PAIN WITH N/V, CONSTIPATION - CHECK CBC, CHEM'S, CARDIAC ENZYMES, UA/CX, BLOOD CX'S, LACTATE, CT ABD/PELVIS - R/O BOWEL OBSTRUCTION, ILEUS, BOWEL IMPACTION, PERFORATION, ULCERATIVE COLITIS, DEHYDRATION/RENAL INSUFF, ELECTROLYTE ABNL, SEPSIS 1229 - LACTIC ELEVATED, SUSPECT ABDOMINAL SOURCE PT ONLY HAS ONE SIRS CRITERIA OF HR>90 ORGAN DYSFUNCTION - LACTIC >2 IVF'S GIVEN, BLOOD CX'S DRAWN PRIOR TO ABX'S, ZOSYN GIVEN, REPEAT LACTIC AFTER 2 L NS IV BOLUS REPEAT LACTIC IS ELEVATED, NOW 3.5 - ADDITIONAL IVF'S GIVEN, ADMIT TO DR Hang MCKEON AND I ALSO SPOKE WITH DR Hang GRIFFIN Assessment & Plan Final Impression: (1) Abdominal pain (2) Vomiting Assessment & Plan ADMIT, F/U CT ABD/PELVIS Depart Disposition: ADMITTED Last Vital Signs Date Time Temp Pulse Resp B/P (MAP) Pulse Ox O2 Delivery O2 Flow Rate FiO2 02/02/20 13:26 91 16 119/61 95 02/02/20 12:02 98.2 Home Meds Active Scripts Aspirin (ASPIRIN) 325 Mg Tablet, 325 MG PO BIDWM for 21 Days Prov:ROCKY KEYS 09/19/16 Reported Medications Lorazepam (ATIVAN) 1 Mg Tablet, 1 MG PO PRN 09/14/16 Prednisone (PREDNISONE) 5 Mg Tablet, 5 MG PO DAILY 09/14/16 Hydroxychloroquine Sulfate (HYDROXYCHLOROQUINE SULFATE) 200 Mg Tablet, 200 MG PO DAILY 09/14/16 Clonazepam (CLONAZEPAM) 1 Mg Tablet, 1 MG PO PRN, TAB 06/21/15 Bupropion Hcl (WELLBUTRIN SR) 150 Mg Tablet.er, 150 MG PO DAILY 06/21/15 Albuterol Sulf* (PROAIR HFA INHALER*) 8.5 Gm Inh, INH QID 06/21/15 Montelukast Sodium (SINGULAIR) 10 Mg Tablet, 10 MG PO DAILY 06/21/15 Esomeprazole Magnesium (NEXIUM) 40 Mg Capsule.dr, 40 MG PO DAILY PROTONIX THERAPEUTIC SUBSTITUTE FOR NEXIUM PER [facility] 06/21/15 Alendronate Sodium (ALENDRONATE SODIUM) 35 Mg Tablet, 35 MG PO WEEKLY 06/21/15 Medications in the ED Pantoprazole Sodium 40 mg ONCE STAT IV Last administered on 02/02/20at 11:59; Admin Dose 40 MG; Start 5/26/20 at 11:07; Stop 02/02/20 at 11:20; Status DC Morphine Sulfate 4 mg ONCE STAT IV Last administered on 02/02/20at 11:59; Admin Dose 4 MG; Start 02/02/20 at 11:07; Stop 02/02/20 at 11:17; Status DC Ondansetron HCl 4 mg ONCE STAT IV Last administered on 02/02/20at 11:59; Admin Dose 4 MG; Start 02/02/20 at 11:07; Stop 02/02/20 at 11:17; Status DC Sodium Chloride 1,000 ml @ 0 mls/hr Q0M STAT IV Last administered on 02/02/20at 12:22; Admin Dose 999 MLS/HR; Start 02/02/20 at 11:07; Stop 02/02/20 at 11:12; Status DC Piperacillin Sod/ Tazobactam Sod 50 ml @ 50 mls/hr NOW STAT IV Last administered on 02/02/20at 11:59; Admin Dose 50 MLS/HR; Start 02/02/20 at 11:07; Stop 02/02/20 at 12:06; Status DC Diatrizoate Meglum/ Diatrizoate Sod 30 ml STK-MED ONCE PO ; Start 02/02/20 at 11:26; Stop 02/02/20 at 11:20; Status DC Sodium Chloride 1,000 ml @ 0 mls/hr Q0M STAT IV Last administered on 02/02/20at 13:08; Admin Dose 999 MLS/HR; Start 02/02/20 at 12:41; Stop 02/02/20 at 12:42; Status DC Sodium Chloride 1,000 ml @ ud STK-MED ONCE .ROUTE ; Start 02/02/20 at 12:48; Stop 02/02/20 at 12:43; Status DC NE WILDER MD February 02, 2020 13:56
[2020-02-02] MEDS ORDERED: SODIUM CHLORIDE 0.9% 1000ML 1,000 ML IV SCH (14:30)
[2020-02-02] MEDS ORDERED: MORPHINE SULFATE 2 MG/ML SYR 1ML IV PRN (14:30)
[2020-02-02] MEDS ORDERED: ONDANSETRON HCL INJ 2MG/ML 2ML 2 MG/ML VIAL IV PRN (14:30)
[2020-02-02] MEDS ORDERED: ALBUTEROL/IPRATROPIUM 3 ML NEB NEB PRN (14:30)
[2020-02-02] MEDS ORDERED: SODIUM CHLORIDE 0.9% 50ML 50 ML ONE (14:43)
[2020-02-02] MEDS ORDERED: IOPAMIDOL 370 MG/ML 200 ML INFUS..BTL INJ ONE (14:44)
[2020-02-02] MEDS: METRONIDAZOLE 500MG/NS 100ML 100 ML IV SCH ×2 (14:53→20:41)
[2020-02-02] MEDS ORDERED: HYDROCODON-ACE1 EA11 (15:23)
--- OUTSIDE RECORDS SUMMARY | 2020-02-02 15:53 | XMS REPORT ---
Author Author [facility] t Organization [facility] Address [address] [place] [address] Phone Unavailable Care Team Providers Care Practicing Urologist Name Role Phone Jorge WILDER Attphys Unavailable Payers Payer Name Policy Type Policy Number Effective Date Expiration Date S ource Problems Condition Name Condition Details Condition Category Status Onset Date Resolution Date Last Treatment Date Treating Clinician Comments Source senior living (current) use of systemic steroids senior living (current) use of systemic steroids Active Problem 12/18/2019 Chau [place] Problem Active 2019-12-18 02:59:05 Chau [place] Other retirement (current) drug therapy Other retirement (current) drug therapy Active Problem 12/18/2019 Chau [...] leflunomide leflunomide Active hair loss 2018-12-19 00:00:00 [facility] ALL KIND OF ADHESIVE TAPES DA Active SV 2018-06-11 00:00:0 0 [facility] N.K.D.A. N.K.D.A. Active Info Not Available 2017-12-31 00:00:00 [facility] No Known Contrast Allergies DA Active U 2009-02-16 00:00: 00 [facility] No Known Drug Allergies DA Active U 2009-02-16 00:00:00 [facility] No Known Food Allergies DA Active U 2009-02-16 00:00:00 [facility] No Known Other Allergies DA Active U 2009-02-16 00:00:00 [facility] No Known Drug Intolerances DA Active U 2008-04-20 00:00:0 0 [facility] Medications Ordered Medication Name Filled Medication Name Start Date Stop Da te Current Medication? Ordering Clinician Indication Dosage Frequency Signature (SIG) Comments Components Source PredniSONE 2019-07-13 00:00:00 Yes Mike [place] 1 tablet Chau Beltraner Sulfasalazine 2019-06-03 00:00:00 Yes Mike Beltraner 2 tablets Chau Beltraner Glucosamine 2019-05-22 02:46:51 Yes Mike Beltraner 1 capsule with a meal [place]au [place] PredniSONE 2019-05-22 02:46:51 Yes Mike Beltraner 1 tablet Chau Beltraner Nexium 2019-05-22 02:46:51 Yes Mike [place] 1 ca psule [place]au [place] Caltrate Gummy Bites 2019-05-22 02:46:51 Yes Mike Wall er as directed Chau [place] Entocort EC 2019-05-22 02:46:51 Yes Mike [place] one [place]au [place] PredniSONE 2019-04-07 00:00:00 Yes Pam Gilliam 1 tablet [place] Sulfasalazine 2019-02-26 00:00:00 Yes Mike [place] 2 tablets [place]au [place] Alendronate Sodium 2019-01-07 00:00:00 Yes Mike [place] 1 tablet [place]au [place] Alendronate Sodium 2018-09-30 00:00:00 Yes Mike [place] 1 tablet Chau [place] Sulfasalazine 2018-08-14 00:00:00 Yes Mkie [place] 2 tablets Chau [place] Alendronate Sodium [...] Date/Time End Date/Time Encounter Type Admission Type Attendi [facility] Care Department Encounter ID Source 2020-02-02 15:53:33 Outpatient MHIEALT MHIEALT [id number] [facility] 2019-10-29 07:01:00 Inpatient [facility] 75 [id number] [facility] 2019-07-13 15:42:00 2019-07-13 15:42:00 Outpatient MD ELISA Dunn MD [place] [id number] Chau [place] MD 2019-06-29 11:42:00 2019-06-29 11:42:00 Outpatient MD ELISA Dunn MD [place] [id number] Chau [place] MD 2019-06-16 15:18:00 2019-06-16 15:18:00 Outpatient MD ELISA Bui MD PA [id number] Chau [place] MD 2019-06-12 09:10:00 2019-06-12 09:10:00 Outpatient MD ELISA Bui MD PA [id number] Chau [place] MD 2019-06-03 13:24:00 2019-06-03 13:24:00 Outpatient MD ELISA Bui MD PA [id number] Chau [place] MD 2019-04-23 10:24:00 2019-04-23 10:24:00 Outpatient Mike York MD PA [id number] Chau York MD 2019-04-07 12:27:00 2019-04-07 12:27:00 Outpatient Mike York MD PA [id number] Chau [place] MD 2019-04-07 09:21:00 2019-04-07 09:21:00 Outpatient Mike York MD PA [id number] Chau York MD 2019-02-26 09:05:00 2019-02-26 09:05:00 Outpatient Mike York MD PA [id number] Chau York MD 2019-02-25 15:35:00 2019-02-25 15:35:00 Outpatient Mike PÉREZ [id number] Chau [place] MD 2019-01-07 10:55:00 2019-01-07 10:55:00 Outpatient Mike PÉREZ [id number] Chau [place] MD 2018-12-19 11:45:00 2018-12-19 11:45:00 Outpatient MD ELISA Bui MD PA [id number] Chau [place] MD 2018-12-01 09:20:00 2018-12-01 09:20:00 Outpatient Mike York MD PA [id number] Chau York MD 2018-11-17 13:30:00 2018-11-17 13:30:00 Outpatient Mike York MD PA [id number] Chau [place] MD 2018-09-30 13:33:00 2018-09-30 13:33:00 Outpatient Mike York MD PA [id number] Chau [place] MD 2018-08-14 10:40:00 2018-08-14 10:40:00 Outpatient Mike York MD PA [id number] Chau York MD 2018-05-01 10:09:00 2018-05-01 10:09:00 Outpatient Mike York MD PA [id number] Chau [place] MD 2018-05-01 09:45:00 2018-05-01 09:45:00 Outpatient Mike York MD PA [id number] Chau York MD 2018-01-21 10:45:00 2018-01-21 10:45:00 Outpatient Mike York MD PA [id number] Chau [place] MD 2018-01-14 09:24:00 2018-01-14 09:24:00 Outpatient Mike PÉREZ [id number] Chau [place] MD 2018-01-02 20:21:00 2018-01-02 20:21:00 Outpatient Mike PÉREZ [id number] Chau [place] MD 2017-12-31 14:45:00 2017-12-31 14:45:00 Outpatient Mike PÉREZ [id number] Chau [place] MD 2017-09-16 10:44:00 2017-09-16 10:44:00 Outpatient Mike PÉREZ [id number] Chau [place] MD 2017-09-16 09:45:00 2017-09-16 09:45:00 Outpatient Mike PÉREZ [id number] Chau [place] MD Results Test Description Test Time Test Comments Results Result Comments Source CHEST SINGLE (PORTABLE) 2020-02-02 12:09:00 [place] [id number] Patient Name: URSULA WATTS MR #: [id number] : 1950 Age/Sex: 69/F Req #: [id number] Adm Physician: Ordered by: NE WILDER MD Report #: [id number] Location: ER Room/Bed: Procedure: [id number] DX/CHEST SINGLE (PORTABLE) Exam Date: 02/02/20 Exam Time: 1135 REPORT STATUS: Signed X-ray chest single view portable History: Abdominal pain, COPD, chronic shortness of breath Comparison: 06/21/2015 Findings: Central airways unremarkable. Heart size normal. Atherosclerotic aorta. No pleural effusion. No pneumothorax. No focal lung infiltrates. Hyperinflated lucent lungs. 2 oval opacities, one 18 mm opacity in the right upper lung zone and another 16.7 mm in the right lower lung zone, new compared with the previous exam. Another opacity measuring approximately 12 mm seen in the left upper lung zone. This could be overlapping multiple bone shadows. However given the history, further evaluation with chest CT is suggested. Status post C-spine fusion on a chronic basis. Impression: No acute cardiopulmonary disease. 2 nodular opacities in the right lung and one possibly in the left upper lung zone as described above. A chest CT may be considered given the findings of COPD. Signed by: Galindo Balderas MD on 02/02/2020 12:15 PM Dictated By: GALINDO BALDERAS MD 14 Transcribed By: TEJAS on 02/02/201214 COPY TO: NE WILDER MD SCR MAMM BILATERAL COLIN CAD DIGITAL 2018-11-13 14:02:20 - SCR MAMM BILATERAL COLIN CAD DIGITALBILATERAL DIGITAL SCREENING MAMMOGRAM 3D/2D WITH CAD: 11/13/2018CLINICAL: Asymptomatic. Digital breast tomosynthesis was performed in addition to routine CC and MLO views. Current mammographic images were evaluated by either a Revetto M-Vu or a Revaluate ImageChecker CAD (computer aided detection system). Comparison is made to exams dated 10/09/2017 mammogram, 07/15/2014 mammogram, and 04/29/2013 mammogram - [facility]-. There are scattered fibroglandular tissues in both breasts. There are benign vascular calcifications and a calcification in both breasts. No suspicious mass, architectural distortion, malignant type calcification, or lymph node abnormality detected. Breast architecture is stable compared to prior exams.IMPRESSION: BENIGNThere is no mammographic evidence of malignancy. Resume annual screening mammography in one year. Karen Buenrostro M.D. ar/penrad:11/13/2018 14:02:20 [employer]: Aziza CARDONA, [facility]-FWletter sent: BIRADS 1-2 Normal Mammogram BI-RADS: 2 Benign HARDWARE 2018-06-19 15:43:00 RUN DATE: 06/19/18 [facility] PAGE 1 RUN TIME: 1543 Specimen Inquiry RUN USER: INTERFACE PATIENT: URSULA WATTS LOC: VON U #: [id number] AGE/SX: 67/F ROOM: [facility] RE06/18/18REG DR: Theodore Upton MD : 48 BED: A DIS: 06/19/18 STATUS: DIS IN TLOC: SPEC #: [id number] RECD: 06/18/18 STATUS: HIPOLITO RE #: [id number] LISBETH: 06/18/18- SUBM DR: Theodore Upton MD ENTERED: 06/18/188 SP TYPE: HARDWARE OTHR DR: Faisal Mendenhall MD ORDERED: GROSS COPIES TO: Theodore Upton MD [address] [place] [address] Faisal Mendenhall MD [address] [place] [address] PROCEDURES: GROSS (06/19/18-1156) TISSUES: 1. HARDWARE 2. 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 AND L2-3 SPINAL STENOSIS FINAL DIAGNOSIS Hardware, removal: SURGICAL HARDWARE (GROSS IDENTIFICATION) Ligamentum flavum, laminectomy: TRABECULAR BONE WITH UNREMARKABLE MARROW ELEMENTS CARTILAGE WITH DEGENERATIVE CHANGE FRAGMENTS OF DENSE CONNECTIVE TISSUE NEGATIVE FOR MALIGNANCY RRB/sm D 12379, 75232, 60322 CONTINUED ON NEXT PAGE RUN DATE: 06/19/18 [facility] PAGE 2 RUN TIME: 1543 Specimen Inquiry RUN USER: INTERFACE SPEC #: [id number] PATIENT: URSULA WATTS PAGE #[id number] (Continued) MACROSCOPIC The first specimen is received [...] evaluation in cassette (2). GROSS PERFORMED AT [facility] [address] [place] [address] 80201 (p)[phone] MICROSCOPIC MICROSCOPIC PERFORMED AT [facility] All of the stains, including any controls performed, stain appropriately. [facility] [address] [place] [address] 77504 (p)[phone] PERFORMING SITE Diagnosis performed at: [facility], ELISA [address] [place] [address] Signed SIGNATURE ON FILE Skyler Vyas 06/19/18 1543 END OF REPORT
--- OUTSIDE RECORDS SUMMARY | 2020-02-02 15:53 | XMS REPORT | Continuity of Care Document ---
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 Active Problem 12/18/2019 Chau [place] Other halfway (current) drug therapy Active Problem 06/2020 Chau [...] Active 5 MG Orally twice a day [facility] 04/07/2019 Chau [place] Sulfasalazine 2 tablets Orally Active 500 MG Orally bid [place] 02/26/2019 Chau [place] Alendronate Sodium 1 tablet Orally Active 70 MG Orally Once a week [place] 01/07/2019 Chau [place] Alendronate Sodium 1 tablet Orally Active 70 MG Orally Once a week [place] 09/30/2018 Chau [place] Sulfasalazine 2 tablets Orally Active 500 MG Orally bid [place] 08/14/2018 Chau [place] PredniSONE 1 tablet Orally Active 5 MG Orally twice a day [place] 03/15/2018 Chau [place] Leflunomide 2 tablets Orally Active 10 MG Orally Once a day [place] 03/15/2018 Chau [place] Sulfasalazine 2 tablets Orally Active 500 MG Orally bid [place] 01/21/2018 Chau [place] Glucosamine 1 capsule with a m eal Orally Active 500 MG Orally Once a day [place] Chau York PredniSONE 1 tablet Orally Active 5 MG Orally twice a day [place] John Beltraner Alendronate Sodium 1 tablet Orally Active 70 MG Orally Once a week [place] Chau York Nexium 1 capsule Orally Active 20 MG Orally Once a day [facility] melany Beltraner Leflunomide 2 tablets Orally Active 10 MG Orally Once a day [place] Chau York Caltrate Gummy Bites as direct ed Orally Active 250-400 MG-UNIT Orally Once a day [place] Chau York Alendronate Sodium 1 tablet Orally Active 70 MG Orally Once a week [place] Chau York Entocort EC one Orally Active 3 MG Orally tid [place] John Beltraner Allergies, Adverse Reactions, Alerts Substance [...] Chau [place] Heart Rate 76 12/19/2018 Chau [place] Diastolic (mm Hg) 80 12/19/2018 Chau York [...] [place] Systolic (mm Hg) 152 12/31/2017 [place]au [place] Weight 91.7 09/16/2017 Chau [place] Height 60 0 09/16/2017 Chau [place] Temperature Oral (F) 98.9 F 09/16/2017 Chau [place] Heart Rate 96 09/16/2017 Chau [place] Diastolic (mm Hg) 80 09/16/2017 Chau [place] Systolic (mm Hg) 112 09/16/2017 Chau [place] Encounters No Data Provided for This [...]
--- NOTE | 2020-02-02 16:12 | Diagnostic Imaging Report ---
CT of the abdomen and pelvis. Comparison: None Clinical History: Abdominal pain. Bloated. Technique: Helical CT scan of the abdomen and pelvis was performed. Intravenous contrast administration was utilized. Oral contrast administration was not utilized. Coronal and sagittal reconstructions were generated from the raw data. Multiple images were submitted for interpretation. This exam was performed according to our departmental dose-optimization program which includes automated exposure control, adjustment of the mA and/or kV according to patient size Discussion: Inferior chest: Minimal dependent atelectasis. Otherwise unremarkable.. Liver: There is bilateral diffuse intrahepatic biliary dilatation. There is also dilatation of the extrahepatic biliary tree involving the common hepatic duct and the common bile duct that comes to an abrupt termination in the region of the ampulla. The patient is status post cholecystectomy. No intrabiliary ductal calculus or defect is seen. There is also atrophy of the pancreatic body, uncinate process and head region with prominent dilated pancreatic duct. This raises a strong possibility of pathology in the region of the duodenal ampulla. Malignancy is not ruled out. There is no focal liver mass. The main portal vein, splenic vein and the superior mesenteric vein are patent. The fat planes gas the superior mesenteric artery, the celiac and hepatic artery are free of infiltration. There is no lane hepatis or peripancreatic lymphadenopathy visualized. Spleen: Unremarkable Pancreas: As above Biliary tree and gallbladder: As above Adrenal glands: Unremarkable Kidneys and ureters: Unremarkable Vasculature: There is tortuosity of aorta and iliac arteries. Lymph nodes: No lymphadenopathy. Bowel: Gastric wall thickening. This is likely because of the poor gastric distention. Pelvis: Urinary bladder is unremarkable. Prostate unremarkable. Seminal vesicles unremarkable. Pelvic wall unremarkable. Peritoneum: Unremarkable Perineal compartments: unremarkable. Fluid: No free fluid Bones: There are changes of previous spine surgery with removal of transpedicular screws at L3-L4-L5 levels and status post laminectomy at L3-L4 levels. There is presence of degenerative disease, malalignment and spondylolisthesis at these levels. There is a metallic object at L4-L5 level likely a site of spinal fusion. Also noted is a healed fracture of the left pubis. Body wall: Unremarkable. Impression: Significant intra and extrahepatic biliary dilatation and pancreatic duct dilatation with narrowing of the CBD in the region of the ampulla. This should be further evaluated with ERCP. A malignant process is not ruled out. Signed by: Galindo Wilson MD on 02/02/2020 4:08 PM
[2020-02-02] MEDS ORDERED: PIPER-TAZ 3.375 GM 50 ML IV SCH (17:00)
[2020-02-02 17:50] VITALS: BP 117/76
[2020-02-02 18:17] VITALS: BP 117/76
[2020-02-02 18:18] VITALS: BP 117/76
[2020-02-02] MEDS: MORPHINE SULFATE INJ 4 MG/ML INJ 1ML IV PRN (18:37)
--- NOTE | 2020-02-02 20:03 | Diagnostic Imaging Report ---
EXAM: Magnetic Resonance Cholangiopancreatography (M.R.C.P.) INDICATION: ^INTRA/EXTRAHEPATIC PANC DUCT DILATATION COMPARISON: Abdominal CT 02/02/2020. TECHNIQUE: Multiplanar, multisequence MRCP was performed, with departmental protocol. IV Contrast: None Oral Contrast: None Medications: None COMPLICATIONS: None FINDINGS: LOWER THORAX: Unremarkable. HEPATOBILIARY: No focal hepatic lesions. Mild intrahepatic biliary ductal dilation. Significant common bile duct dilation, 2 cm in diameter. No endoluminal signal voids. GALLBLADDER: Cholecystectomy. SPLEEN: No splenomegaly. PANCREAS: No focal masses. Main pancreatic duct dilation 3 mm in diameter, upper limit of normal. ADRENALS: No adrenal nodules KIDNEYS/URETERS: No hydronephrosis. No cystic or solid mass lesions. No stones. GI TRACT: No abnormal distention, wall thickening, or evidence of bowel obstruction. Appendix is normal. LYMPH NODES: No lymphadenopathy. VESSELS: Unremarkable. PERITONEUM / RETROPERITONEUM: No free air or fluid. BONES: Levoscoliosis of the lumbar spine. SOFT TISSUES: Unremarkable. IMPRESSION: Mild intrahepatic biliary ductal dilation and considerable common bile duct dilation, 2 cm in diameter, without MRI evidence of an obstructing lesion. Post cholecystectomy biliary dilation is an expected finding due to reservoir effect, although this patient's degree of biliary dilation is greater than typical. Recommend correlation for cholestasis and GI consultation for consideration of ERCP/endoscopic ultrasound, as an occult ampullary neoplasm is possible. Upper limit of normal of the pancreatic duct diameter. Signed by: Raj Castillo DO on 02/03/2020 7:39 AM
[2020-02-02 20:30] VITALS: BP 105/86
[2020-02-02 21:10] VITALS: BP 105/86
[2020-02-02 21:31] LABS: CREATINE KINASE MB 4.7 ng/mL (0-5.0)
[2020-02-03] VITALS (9 sets, daily range): BP systolic 97–132; BP diastolic 52–71
[2020-02-03] MEDS: MORPHINE SULFATE INJ 4 MG/ML INJ 1ML IV PRN (02:42)
[2020-02-03] MEDS: METRONIDAZOLE 500MG/NS 100ML 100 ML IV SCH ×2 (03:21→09:00)
[2020-02-03 05:22] LABS: BASOPHILS # (AUTO) 0.1 (0.0-0.1); BASOPHILS % 0.7 % (0.0-1.0); EOSINOPHILS # (AUTO) 0.1 (0.0-0.4); EOSINOPHILS % 1.2 % (0.0-6.0); HEMATOCRIT 32.1 % (34.2-44.1); HEMOGLOBIN 10.6 g/dL (12.0-16.0); LYMPHOCYTES # (AUTO) 0.9 (1.0-3.2); LYMPHOCYTES % 8.4 % (18.0-39.1); MEAN CORPUSCULAR HEMOGLOBIN 39.6 pg (28-32); MEAN CORPUSCULAR VOLUME 119.8 fL (81-99); MONOCYTES # (AUTO) 0.5 (0.2-0.8); MONOCYTES % 5.1 % (4.4-11.3); NEUTROPHILS # (AUTO) 8.7 (2.1-6.9); NEUTROPHILS % 84.1 % (38.7-80.0); PLATELET COUNT 163 x10e3/uL (140-360); RED BLOOD COUNT 2.68 x10e6/uL (3.6-5.1); RED CELL DISTRIBUTION WIDTH 13.3 % (11.7-14.4)
[2020-02-03 05:46] LABS: ALANINE AMINOTRANSFERASE 20 IU/L (0-55); ALBUMIN/GLOBULIN RATIO 1.2 (0.8-2.0); ALKALINE PHOSPHATASE 85 IU/L (40-150); ANION GAP 14.6 mmol/L (8-16); BLOOD UREA NITROGEN 9 mg/dL (7-26); BUN/CREATININE RATIO 15 (6-25); CALCIUM 8.1 mg/dL (8.4-10.2); CARBON DIOXIDE 19 mmol/L (22-29); CHLORIDE 106 mmol/L (98-107); CREATININE, SERUM 0.59 mg/dL (0.57-1.11); EST GLOMERULAR FILTRATION RATE > 60 ML/MIN (60-); GLUCOSE 63 mg/dL (74-118); POTASSIUM 3.6 mmol/L (3.5-5.1); SODIUM 136 mmol/L (136-145)
[2020-02-03 06:10] LABS: CREATINE KINASE MB 5.7 ng/mL (0-5.0)
[2020-02-03 06:44] LABS: POLYCHROMASIA FEW
[2020-02-03 06:45] LABS: PLATELET ESTIMATE ADEQUATE; PLATELET MORPHOLOGY COMMENT NORMAL; RBC MORPHOLOGY COMMENT NORMAL
[2020-02-03] MEDS ORDERED: PANTOPRAZOLE 40 MG 10ML VIAL IV ONE (13:00)
--- NOTE | 2020-02-03 13:34 | History and Physical ---
PRIMARY CARE PHYSICIAN: Dr. Faisal Mendenhall. LAMINATION ASSEMBLER: 1. Jase Cueto MD. 2. Yayo Martinez MD. CHIEF COMPLAINT: Abdominal pain, nausea and vomiting. HISTORY OF PRESENT ILLNESS: The patient is a 69-year-old female with history of cholecystectomy, COPD, and hypertension, who came into the hospital with nausea and vomiting for the past few days. The patient's CT scan showed dilated common bile duct. An MRCP confirmed the dilatation. The patient's common bile duct dilatation is more than expected on a post cholecystectomy. The patient is otherwise stable. She has chronic lower back pain and COPD. PAST MEDICAL HISTORY: Rheumatoid arthritis, ulcerative colitis, osteoarthritis, chronic lower back pain, major depression, anxiety disorder, and COPD. PAST SURGICAL HISTORY: Left knee replacement, 6 back surgery, 2 neck surgery, cholecystectomy, and hernia repair. SOCIAL HISTORY: The patient is a smoker everyday. No alcohol. No recreational drugs. ALLERGIES: NO KNOWN ALLERGIES. HOME MEDICATIONS: List reviewed. REVIEW OF SYSTEMS: As mentioned above, nausea, vomiting, and abdominal pain especially with eating. PHYSICAL EXAMINATION: VITAL SIGNS: Temperature is 98, blood pressure 111/69, pulse rate 78, respirations 18. GENERAL: The patient is not in acute distress. She is awake. HEENT: Normocephalic, atraumatic, and anicteric. NECK: Supple grossly. PULMONARY: Diminished breath sounds without any wheezing or rales. CARDIOVASCULAR: S1, S2. Regular rate and rhythm. ABDOMEN: Soft, no distention. Generalized discomfort without any guarding or rebound tenderness. EXTREMITIES: No cyanosis or edema. NEUROLOGIC: No gross focal deficit. LABORATORY DATA: Sodium is 133, potassium 3.6, chloride 106, bicarb 19, BUN 9, creatinine 0.6, glucose 63. WBC is 10.3, hemoglobin 10.6, hematocrit 32.1, and platelets 163,000. CT scan of the abdomen and pelvis and MRCP consistent with dilated common bile duct. Amylase is normal. INR is 1.02. Total bilirubin is 0.5, AST 37, ALT 20, alkaline phos 85. IMPRESSION: 1. Abdominal pain associated with nausea and vomiting. 2. Dilated common bile duct. 3. Multiple chronic stable medical problems. PLAN: Endoscopy. ERCP. Continue with home medication. IV fluids. Antibiotics. Nicotine patch p.r.n. Nebulizer. Resume some home medication. Hold off on any anticoagulant or anti-platelet. MD RICHELLE Langston/CHERRIE /[id number]
--- NOTE | 2020-02-03 15:06 | Operative Report ---
DATE OF PROCEDURE: 02/03/2020 SURGEON: Yayo Martinez MD PROCEDURE: EGD note and with biopsies. INDICATIONS FOR PROCEDURE: Upper abdominal pain, nausea, and vomiting. Abnormal MRCP with dilated common bile duct and mild intrahepatic biliary dilatation. MEDICATIONS: The patient was done under MAC, please see anesthesiologist's note. PROCEDURE IN DETAIL: With the patient in left lateral decubitus position, a flexible fiberoptic Olympus gastroscope was introduced into the esophagus under direct visualization without any difficulty. There was some patchy erythema noted in distal esophagus. The scope was then advanced with ease into the stomach, traversing a small hiatal hernia. Mucosa overlying the antrum and the body revealed some patchy erythema and low-grade to moderate edema, and biopsies were obtained, sent to stain for H. pylori. Pylorus was of normal contour and shape, it was intubated with ease and the scope was advanced all the way to the second portion of the duodenum. The ampulla could not be well visualized with forward-viewing scope, but the mucosa overlying the duodenal bulb as well as the proximal second portion appeared to be within normal limits. The scope was then withdrawn back into the stomach and retroflexed, mucosa overlying the fundus and cardia appeared to be within normal limits. The scope was then straightened out, it was subsequently withdrawn. Then, the side-viewing Olympus fiberoptic scope was introduced into the esophagus and advanced all the way to the second portion of the duodenum. The ampulla was identified and appeared to be within normal limits. There were no periampullary or ampullary masses noted. The scope was subsequently withdrawn. The patient tolerated the procedure well. IMPRESSION: 1. Distal esophagitis, mild. 2. Small hiatal hernia. 3. Gastritis, biopsied, biopsies sent to stain for H. pylori. 4. Ampulla viewed with the side-viewing scope was within normal limits. There were no periampullary or ampullary masses. 5. The patient might benefit to complete workup. The patient might benefit from an EUS. 6. We will initiate full liquid diet. 7. Protonix 40 mg IV b.i.d. Yayo Martinez MD [facility] [place] /[id number] cc: Miguel Turcios MD
--- NOTE | 2020-02-03 17:45 | NUR ---
PATIENT DISCHARGED HOME VERBALIZED UNDERSTANDING OF DISCHARGE INSTRUCTIONS. iv ACCESS DISCONTINUED PRIOR TO D/C, GIVEN EDUCATIONAL HANDOUTS OF ABDOMINAL PAIN, UTI AND URINARY RETENTION. INSTRUCTED TO F/U GI AND PCP VERBALIZED UNDERSTANDING.
[2020-02-03] MEDS ORDERED: MIDAZOLAM HCL 2 MG/2 ML VIAL ONE (18:13)
[2020-02-03] MEDS ORDERED: FENTANYL CITRATE/PF 100MCG/2 ML INJ ONE (18:13)
[2020-02-03] MEDS ORDERED: LIDOCAINE HCL 2% LOCAL INJ 5 ML SDV VIAL INJ ONE (19:39)
[2020-02-03] MEDS ORDERED: PROPOFOL IV EMULSION 10 MG/ML 20 ML VIAL ONE (19:39)
[2020-02-03] MEDS ORDERED: PANTOPRAZOLE 40 MG 10ML VIAL IV SCH (21:00)
== END 2020-02-03 17:45 | disposition home or self-care (01) ==
LOC: ER 10:52 → ERHOLD 14:36 → INTOOBSV 14:36 → IMCU 18:06
PROVIDERS: ADMIT Internal Medicine; ATTEND Internal Medicine
PROC: 0DB78ZX Excision of Stomach, Pylorus, Via Natural or Artificial Opening Endoscopic, Diagnostic (ICD-10-PCS; 2020-02-03)
PROC: 0DB68ZX Excision of Stomach, Via Natural or Artificial Opening Endoscopic, Diagnostic (ICD-10-PCS; principal; 2020-02-03 14:30)
DX: K83.8 Other specified diseases of biliary tract (principal); T83.511A Infection and inflammatory reaction due to indwelling urethral catheter, initial encounter; Z68.1 Body mass index [BMI] 19.9 or less, adult; K29.70 Gastritis, unspecified, without bleeding; K20.9 Esophagitis, unspecified; K44.9 Diaphragmatic hernia without obstruction or gangrene; J44.9 Chronic obstructive pulmonary disease, unspecified; I10 Essential (primary) hypertension; M54.5 Low back pain; M06.9 Rheumatoid arthritis, unspecified; Z96.652 Presence of left artificial knee joint; F17.210 Nicotine dependence, cigarettes, uncomplicated; Z90.49 Acquired absence of other specified parts of digestive tract; R63.6 Underweight
CPT/HCPCS: 36415; 43239; 71045; 74177; 74181; 80053; 81001; 82550; 82553; 82607; 82747; 83605; 83690; 83735; 84484; 85025; 85610; 85730; 87040; 87071; 87086; 87186; 87205; 88305; 88312; 93005; 96374; 96375; 96376; 99284; G0378; J2001; J2250; J2270; J2405; J2543; J3010; J7030; Q9967; U0002

== ENCOUNTER → 2020-08-22 | Outpatient (CLI) | payer MEDICARE ==
[~2020-08-22] MED LIST changes: +HYDROCODON-ACE1 EA11
== END ==
LOC: RESP 08:22
PROVIDERS: ATTEND Internal Medicine
DX: J44.9 Chronic obstructive pulmonary disease, unspecified (principal)
CPT/HCPCS: 94060; 94664; 94727; 94729

== ENCOUNTER 2021-01-27 11:06 | Emergency (ER) | payer OTHER, MEDICARE ==
[~2021-01-27] VITALS: Ht 152.4 cm; Wt 39.0 kg
[2021-01-27] MEDS ORDERED: HYDROCODONE/APAP 7.5MG-325MG 1 EA TAB PO PRN (12:15)
== END 2021-01-27 15:21 | disposition home or self-care (01) ==
LOC: ER 11:48
DX: M25.552 Pain in left hip (principal); S32.592A Other specified fracture of left pubis, initial encounter for closed fracture; W01.0XXA Fall on same level from slipping, tripping and stumbling without subsequent striking against object, initial encounter; Y92.008 Other place in unspecified non-institutional (private) residence as the place of occurrence of the external cause; C34.90 Malignant neoplasm of unspecified part of unspecified bronchus or lung; J44.9 Chronic obstructive pulmonary disease, unspecified; F32.9 Major depressive disorder, single episode, unspecified; M54.9 Dorsalgia, unspecified; G89.29 Other chronic pain; Z96.652 Presence of left artificial knee joint
CPT/HCPCS: 70450; 72125; 99283